=== PATIENT | female | born 1970 ===

== ENCOUNTER 2023-01-09 11:40 | Outpatient (AMBR) | payer SELFPAY ==
--- NOTE | 2023-01-09 11:47 | PT.OIERPT ---
PT OP Initial Eval Patient Information Visit Reasons: pain
== END 2023-01-18 23:59 | disposition home or self-care (01) ==
LOC: HODPTST 11:40
PROVIDERS: PCP Internal Medicine; Referring Provider Orthopaedic Surgery; Visit Provider Orthopaedic Surgery
DX: I10 Essential (primary) hypertension (principal)